=== PATIENT | female | born 1960 | race Asian ===

== ENCOUNTER 2017-05-01 10:30 | Inpatient (IN) | payer OTHER ==
[~2017-05-01] VITALS: Ht 162.6 cm; Wt 59.9 kg
[2017-05-01] MEDS ORDERED: TIROSINT75 MCG PO (11:56)
[2017-05-01] MEDS ORDERED: LOSARTAN POTAS100 MG PO (11:56)
[2017-05-01] MEDS ORDERED: CRESTOR20 MG PO (11:57)
[2017-05-01] MEDS ORDERED: TOPROL XL50 M1 PO (11:57)
[2017-05-08] MEDS ORDERED: OXYC1TAB9 PO (13:19)
[2017-05-08] MEDS ORDERED: Intestinex CAP PO (13:19)
== END 2017-05-08 15:37 | disposition home or self-care (01) | DRG 330 ==
LOC: O/R 05-05 07:27 → SURG 05-05 07:27 → SURH 05-05 10:30 → SURG 05-05 17:17
PROVIDERS: Surgery
PROC: 0DJD8ZZ Inspection of Lower Intestinal Tract, Via Natural or Artificial Opening Endoscopic (ICD-10-PCS; 2017-05-05)
PROC: 0DTN4ZZ Resection of Sigmoid Colon, Percutaneous Endoscopic Approach (ICD-10-PCS; principal; 2017-05-05 14:30)
DX: K57.20 Diverticulitis of large intestine with perforation and abscess without bleeding (principal); I10 Essential (primary) hypertension; E03.8 Other specified hypothyroidism; E78.4 Other hyperlipidemia; I34.1 Nonrheumatic mitral (valve) prolapse